=== PATIENT | female | born 1965 | race African-American/Black ===

== ENCOUNTER 2020-09-28 09:05 | Outpatient (CLI) | payer BC, SELFPAY ==
--- NOTE | 2020-09-28 09:10 | ECG_ITS ---
Measurements Intervals [place] Rate: 62 P: 53 AK: 162 QRS: -8 QRSD: 90 T: 10 QT: 394 QTc: 403 Interpretive Statements SINUS RHYTHM LOW QRS VOLTAGE IN PRECORDIAL LEADS VOLTAGE CRITERIA FOR LVH BORDERLINE ECG Electronically Signed On 09-28-2020 14:42:24 [employer] SPECIALIST by Bruce Salas D.O.
[2020-09-28 10:23] LABS: Anion Gap 3 mmol/L (8-16); Blood Urea Nitrogen 14 mg/dL (7-17); Calcium 9.4 mg/dL (8.4-10.2); Carbon Dioxide 36 mmol/L (22-30); Chloride 102 mmol/L (98-107); Estimated Glomerular Filt Rate > 60; Glucose 94 mg/dL (65-105); Potassium 3.5 mmol/L (3.4-5.0); Sodium 141 mmol/L (137-145)
== END 2020-09-28 09:06 | disposition home or self-care (01) ==
PROVIDERS: Anesthesiology; PCP Internal Medicine; Visit Provider Obstetrics & Gynecology
DX: Z79.899 Other long term (current) drug therapy (principal); Z01.818 Encounter for other preprocedural examination; I10 Essential (primary) hypertension
CPT/HCPCS: 36415; 80048; 93005

== ENCOUNTER 2020-09-29 02:29 | Outpatient (CLI) | payer BC, SELFPAY ==
[2020-09-29 19:52] LABS: SARS-CoV-2 RNA PCR Negative
== END 2020-09-29 02:30 | disposition home or self-care (01) ==
LOC: ANHCOVIDDT 02:29
PROVIDERS: PCP Internal Medicine; Visit Provider Obstetrics & Gynecology
DX: Z01.812 Encounter for preprocedural laboratory examination (principal); Z20.828 Contact with and (suspected) exposure to other viral communicable diseases
CPT/HCPCS: 87635; C9803; U0003

== ENCOUNTER 2020-10-02 00:57 | Day surgery (SDC) | payer BC, SELFPAY ==
[2020-09-26 14:01] VITALS: BMI 50.7
--- NOTE | 2020-10-02 07:21 | P.PNAN_ITS ---
Anes - Initial Pre Proc Eval Procedure: Operation Date: 10/02/20 12:00 Proposed Procedures p Hysteroscopy, Dilation And Curettage - Neil Love MD Date/Time: 10/02/20 07:21 Surgeon: Neil Love MD Pre Op Diagnosis: Endometrial Hyperplasia Patient Data Age: 54 Gender: F Height: 1.63 m Weight: 134 kg Allergies Allergy/AdvReac Type Severity Reaction Status Date / Time Penicillins Allergy Mild nausea, Verified 10/02/20 10:13 fever Home Medications Medication Instructions Recorded Confirmed Type lansoprazole [Prevacid] 30 mg PO DAILY 09/26/20 10/02/20 History levothyroxine 125 mcg PO DAILY 09/26/20 10/02/20 History metoprolol succinate 50 mg PO DAILY 09/26/20 10/02/20 History mv-min-vit Y-yaobhvfy-eeje 124 1 ea PO DAILY 09/26/20 10/02/20 History [Airborne Elderberry] olmesartan-hydrochlorothiazide 1 tablet PO DAILY 09/26/20 10/02/20 History [Benicar HCT] Patient hx anesthesia problems: none Family hx anesthesia problems: none [facility] Past Medical History Medical History (Updated 10/02/20 @ 07:21 by Haider Nova DO) Hypertension Hypothyroidism AGNIESZKA (obstructive sleep apnea) Surgical History Surgical History (Updated 10/02/20 @ 07:21 by Haider Nova DO) History of sleeve gastrectomy History of thyroidectomy History of umbilical hernia repair Social History Social History Smoking status: Never smoker Living arrangements: with family Spiritual care concerns: No Anes - Eval Final PreProcedure Day of Procedure 10/02/20 07:21 Patient weight: morbidly obese Heart: regular rate and rhythm Lungs: clear to auscultation and normal air movement Airway: Mallampati scale class II Neurological: alert and oriented Last oral intake: >/= 8 hours ASA classification: III Emergent: no Anesthetic plan: proceed Anesthesia type and monitoring: general GIVS and standard monitoring Informed Consent: The patient's anesthetic plan and its attendant risks and benefits were discussed with the patient/family/POA. Questions were solicited and answers provided to the satisfaction of the patient/family/POA.
[2020-10-02 10:27] VITALS: BP 136/74; PULSE 71; RESP 18; TEMP 36.3; O2SAT 100
[2020-10-02] MEDS: LACTATED RINGERS 1,000 ML 30 ML IV CONT (10:40)
[2020-10-02] MEDS: ACETAMINOPHEN 500 MG TABLET 1000 MG PO (10:40)
--- NOTE | 2020-10-02 12:05 | WPDHPUPDATE1 ---
History and Physical Update Update Date/Time: 10/02/20 12:05 History and Physical has been reviewed, including an updated exam of the patient. There are NO changes in the patient's condition. Risks, benefits, and alternatives have been discussed and questions answered. Patient agrees to proceed with procedure.
[2020-10-02] MEDS: KETOROLAC 30 MG/ML VIAL (*BKC) IV PUSH (12:41)
[2020-10-02 12:49] VITALS: BP 137/84; PULSE 68; RESP 20; O2SAT 100
--- NOTE | 2020-10-02 13:03 | PM.PROC ---
Procedure Note - Detailed Date of procedure: 10/02/20 Pre-op diagnosis: Endometrial Hyperplasia Post Menopausal Bleeding Post-op diagnosis: same Procedure performed: Hysteroscopy D&C Description of procedure: The patient was taken the operating room. She was prepped and draped in the dorsal lithotomy position after induction of mac anesthesia. A speculum was placed in the vagina. The cervix grasped with a tenaculum. The cervix was injected at 3 and 9:00 a.m. with 1% lidocaine. Cervix was dilated up to 1 cm. The hysteroscope was inserted the intrauterine cavity and the above findings were noted. A medium-size curette was then used to curettage all surfaces within the endometrial cavity. The endometrial curettings were collected on a Telfa. There were submitted to the pathology department. Hysteroscope was reinserted the intrauterine cavity to re-examine the endometrial surfaces. The hysteroscope was withdrawn. The tenaculum was removed. The speculum was removed. The patient tolerated the procedure well. She was taken recovery room stable condition. Sponge lap needle counts were correct x2. Anesthesia: MAC Surgeon: Neil Love MD Estimated blood loss (mL): 20 Drains: No Packing: No Pathology: yes Complications: No immediate complications Condition: stable Disposition: PACU Findings: There was some thickening of the endometrium - very soft - worrisome. There was normal appearing vulva vagina and cervix.
[2020-10-02] MEDS: fentaNYL CITRATE INJ (*CRX) 100 MCG/2 ML VIAL 25 MCG IV PUSH (13:10)
[2020-10-02 13:15] VITALS: BP 127/81; PULSE 55; RESP 20
[2020-10-02 14:00] VITALS: BP 105/66; PULSE 54; RESP 20
== END 2020-10-02 14:09 | disposition home or self-care (01) ==
PROVIDERS: PCP Internal Medicine; Visit Provider Obstetrics & Gynecology
PROC: 0U5B8ZZ Destruction of Endometrium, Via Natural or Artificial Opening Endoscopic (ICD-10-PCS; CPT 58563; principal; 2020-10-02 12:00)
DX: C54.1 Malignant neoplasm of endometrium (principal); N95.0 Postmenopausal bleeding; I10 Essential (primary) hypertension; E03.9 Hypothyroidism, unspecified; G47.33 Obstructive sleep apnea (adult) (pediatric); E66.01 Morbid (severe) obesity due to excess calories; Z68.42 Body mass index [BMI] 45.0-49.9, adult
CPT/HCPCS: 58558; 88305; A9270; J1885; J2250; J2704; J3010; J7030; J7120

== ENCOUNTER → 2021-07-10 17:26 | Outpatient (CLI) | payer BC, SELFPAY ==
--- NOTE | ~2021-07-10 | MM_ITS ---
EXAMINATION: MM screening [facility] BI w harvey HISTORY: Screening mammogram, family history of breast cancer in her mother. TECHNIQUE: Craniocaudal and mediolateral oblique 3-D tomosynthesis images were obtained and synthetic 2-D images were generated. CAD analysis was submitted and interpreted. COMPARISON: 08/27/2019, 10/14/2017, 07/24/2016 BREAST PARENCHYMAL COMPOSITION: There are scattered areas of fibroglandular density. FINDINGS: There is no evidence of suspicious mass, calcification, or architectural distortion to sugg est malignancy in either breast. There has been no suspicious interval change. IMPRESSION: 1. No mammographic evidence of malignancy. 2. Recommend routine screening mammography in one year. BI-RADS Category 1: Negative Reviewed, dictated and finalized at location A.
== END ==
PROVIDERS: PCP Internal Medicine; Visit Provider Obstetrics & Gynecology
DX: Z12.31 Encounter for screening mammogram for malignant neoplasm of breast (principal)
CPT/HCPCS: 77063; 77067

== ENCOUNTER → 2023-01-21 16:37 | Outpatient (CLI) | payer BC, SELFPAY ==
--- NOTE | ~2023-01-21 | MM_ITS ---
EXAMINATION: MM screening [facility] BI w harvey HISTORY: Screening mammogram, family history of breast cancer in her mother. TECHNIQUE: Craniocaudal and mediolateral oblique 3-D tomosynthesis images were obtained and synthetic 2-D images were generated. CAD analysis was submitted and interpreted. COMPARISON: 07/10/2021, 08/27/2019, 10/14/2017 BREAST PARENCHYMAL COMPOSITION: There are scattered areas of fibroglandular density. FINDINGS: No suspicious mass, calcification, or architectural distortion are identified in either orion ast to suggest malignancy. There has been no suspicious interval change. IMPRESSION: 1. No mammographic evidence of malignancy. 2. Recommend routine screening mammography in one year. BI-RADS Category 1: Negative Reviewed, dictated and finalized at location A. [employer] IN[employer]ER
== END ==
PROVIDERS: PCP Internal Medicine; Visit Provider Internal Medicine
DX: Z12.31 Encounter for screening mammogram for malignant neoplasm of breast (principal)
CPT/HCPCS: 77063; 77067

== ENCOUNTER 2023-08-04 08:37 | Outpatient (CLI) | payer BC, SELFPAY ==
--- NOTE | ~2023-08-04 | MMUS_ITS ---
EXAMINATION: MM diagnostic usman RT w harvey, US breast RT limited HISTORY: Palpable right breast abnormality. TECHNIQUE: Additional 3-D tomosynthesis images of the right breast were performed and synthetic 2-D i mages were generated. CAD analysis was submitted and interpreted. High resolution Limited right breas t ultrasound was performed. COMPARISON: Comparison to multiple prior studies sequentially, with oldest reviewed study dated 07/05. BREAST PARENCHYMAL COMPOSITION: Breast composed of scattered areas of fibroglandular density FINDINGS: MAMMOGRAPHIC FINDINGS: There are no suspicious masses, calcifications or architectural distortion in the right breast to sug gest malignancy. ULTRASOUND: Limited right breast ultrasound: Normal heterogeneous echotexture without focal solid or cystic mass. IMPRESSION: 1. No evidence for malignancy in the right breast. 2. Routine yearly screening mammogram and regular clinical breast examination are recommended. BI-RADS Category 1: Negative Reviewed, dictated and finalized at location A. IMPRESSION: 1. No evidence for malignancy in the right breast. 2. Routine yearly screening mammogram and regular clinical breast examination a re recommended. BI-RADS Category 1: Negative
== END 2023-08-04 08:38 ==
PROVIDERS: PCP Obstetrics & Gynecology; Visit Provider Obstetrics & Gynecology
DX: N63.10 Unspecified lump in the right breast, unspecified quadrant (principal); R92.2 Inconclusive mammogram
CPT/HCPCS: 76642; 77061; 77065; G0279